=== PATIENT | female | born 1990 | race Asian ===

== ENCOUNTER → 2023-06-28 13:01 | Outpatient (CLI) | payer OTHER, SELFPAY ==
[2023-06-28 14:07] LABS: Appearance Urine UA CLEAR; Bilirubin Urine UA NEGATIVE (NEGATIVE); Color Urine UA YELLOW; Glucose Urine UA NEGATIVE (Negative); Ketones Urine UA NEGATIVE (NEGATIVE); Leukocyte Esterase Urine UA TRACE (NEGATIVE); Nitrite Urine UA NEGATIVE (Negative); Occult Blood Urine UA NEGATIVE (Negative); Protein Urine UA NEGATIVE (Negative); Urine Volume 10mL (spun); Urobilinogen Urine UA 0.2 E.U./dL (0.2); pH Urine UA 5.5 (4.5-8.0)
[2023-06-28 14:11] LABS: Bacteria Urine None Seen; RBC Urine None Seen (0-5/HPF); Squamous Epithelial Cell Urine 0-1 /HPF (0-5/HPF); WBC Urine 1-5/HPF (0-5/HPF)
[2023-06-28 14:12] LABS: Add Manual Diff / Slide Review NO; Basophils Absolute Auto 100 /uL (0-100); Basophils Percent Auto 0.6 % (0-2); Eosinophils Absolute Auto 100 /uL (0-450); Eosinophils Percent Auto 1.3 % (2-4); Hematocrit 40.4 % (36-46); Lymphocytes Absolute Auto 1400 /uL (1100-4500); Lymphocytes Percent Auto 14.5 % (25-40); Mean Corpuscular HGB Conc 34.5 % (30-36); Mean Corpuscular Hemoglobin 31.3 PG (26-34); Mean Corpuscular Volume 90.5 fL (80-100); Monocytes Absolute Auto 600 /uL (0-900); Monocytes Percent Auto 6.1 % (3-14); Neutrophils Absolute Auto 7300 /uL (1500-7000); Neutrophils Percent Auto 77.5 % (50-75); Platelet Count 254 X10^3/uL (150-400); Red Blood Cell Count 4.47 X10^6/uL (4.0-5.2); Red Cell Distribution Width 12.4 % (11.6-14.8); White Blood Cell Count 9.4 X10^3/uL (4.5-11.0)
[2023-06-28 14:16] LABS: Hemoglobin A1C% w Est Avg Glu 4.9 % (4.0-6.0)
[2023-06-28 15:34] LABS: Urine N gonorrhoeae NOT DETECTED
[2023-06-28 15:40] LABS: Urine Chlamydia NOT DETECTED
[2023-06-29 08:26] LABS: Varicella IgG Antibody 1131 index (Immune >165)
[2023-06-29 16:14] LABS: HIV 1 & 2 Ab/Ag 4th Gen Combo NEGATIVE (NEGATIVE); Hep C Virus Ab w/Reflex Quant NEGATIVE s/c (NEGATIVE); Hepatitis B Surface Antigen NEGATIVE s/c (NEGATIVE); Rubella Antibody IgG > 350.0 IU/mL (>15)
[2023-06-30 03:30] LABS: RPR Screen Non Reactive (Non Reactive)
== END ==
PROVIDERS: PCP Nurse Practitioner Family; Referring Provider Family Medicine; Visit Provider Family Medicine
DX: O09.299 Supervision of pregnancy with other poor reproductive or obstetric history, unspecified trimester (principal); Z86.32 Personal history of gestational diabetes
CPT/HCPCS: 36415; 80055; 81003; 81015; 83036; 86787; 86803; 86850; 86900; 86901; 87086; 87389; 87491; 87591

== ENCOUNTER → 2023-08-28 15:10 | Outpatient (CLI) | payer OTHER, SELFPAY ==
[2023-08-31 21:07] LABS: AFP, Serum 66.4 ng/mL (.); Calc Gestational Age EDD (.); Inhibin A, Dimeric 194.77 pg/mL (.); Inhibin A, MoM 1.07 (.); Maternal Ethnicity Other (.); Maternal Weight 116 lbs (.); Number of Fetuses No (.); OSBR Risk 1 IN 5096 (.); Results Report (.); Test Results *Screen Negative* (.); hCG, MoM 1.27 (.); hCG, Serum 45743 mIU/mL (.)
== END ==
LOC: LAB 15:12
PROVIDERS: PCP Nurse Practitioner Family; Referring Provider Family Medicine; Visit Provider Family Medicine
DX: Z34.80 Encounter for supervision of other normal pregnancy, unspecified trimester (principal)
CPT/HCPCS: 82105; 82677; 84702; 86336

== ENCOUNTER 2023-09-21 08:11 | Emergency (ER) | payer OTHER, SELFPAY ==
[2023-09-21 08:46] VITALS: BP 120/62; PULSE 112; RESP 20; TEMP 37; O2SAT 100; BMI 20.7
--- NOTE | 2023-09-21 09:17 | ED_ITS ---
HPI - General Chief complaint: Urogenital-Female Stated complaint: fever, low back pain Time Seen by Provider: 09/21/23 08:56 Source: patient and family Mode of arrival: Ambulatory Limitations: language barrier History of Present Illness HPI Narrative: This is a 33-year-old female history of gestational diabetes patient who presents with right flank pain for the last 2 days. Patient noted she would some fevers and chills the night before. She states pain is mostly in the flank occasionally comes around to the front but is currently just in the back. She denies any vomiting she has occasionally had some nausea. States no dysuria, urgency or frequency. No issues such as diarrhea or constipation. She has not had any vaginal fluid leakage or bleeding. She states she does feel baby move and has not had any changes. Patient notes she does have some pain down between her thighs but that has been going on for about 2 months worse at nighttime when she is sleeping she does not think it is related to this. Patient only current medication is her vitamins. She did take some Tylenol last night which was somewhat helpful she has not had anything today for pain. She denies prior surgeries. No known drug allergies. No tobacco, no regular alcohol, no recreational drugs. She is accompanied by her . Her provider is Dr. Monreal. Related Data Previous Rx's Medication Instructions Recorded vits no.126-ferrous fum 1 tab PO DAILY #90 tabs 08/28/23 28 mg iron-folic acid 800 mcg tablet (Classic ) cephalexin 500 mg capsule 500 mg PO BID 14 days #28 caps 09/21/23 ondansetron 4 mg disintegrating 4 mg PO Q6H PRN nausea and 09/21/23 tablet vomiting #7 tabs Allergies Allergy/AdvReac Type Severity Reaction Status Date / Time No Known Drug Allergies Allergy Unverified 08/28/23 14:50 Review of Systems Review of Systems ROS Unobtainable: All systems reviewed & are unremarkable except as noted in HPI and below Exam Narrative Exam Narrative: GENERAL: Alert and oriented x three, mild patient is more uncomfortable with movement. HEENT: Head normocephalic, atraumatic, EOMI, pupils reactive, face symmetric, moist mucous membranes NECK: Supple, full range of motion CARDIOVASCULAR: Regular rate and rhythm without murmurs, rubs or gallops. RESPIRATORY: Breath sounds equal bilaterally, no wheezes rales or rhonchi. ABDOMEN: Soft, nontender. Gravid, size appropriate for dates. Nontender. Normoactive bowel sounds all 4 quadrants. No guarding or rebound, rigidity, no mass : Right CVA tenderness, no left CVA tenderness. EXTREMITIES: Normal range of motion, no clubbing or edema. Neurovascularly intact NEUROLOGICAL: Cranial nerves II through XII grossly intact. Moving all extremities SKIN: Warm, dry, no petechiae, no rashes or lesions. Initial Vital Signs Initial Vital Signs: Vital Signs Temperature 98.6 F 09/21/23 08:46 Pulse Rate 112 H 09/21/23 08:46 Respiratory Rate 20 09/21/23 08:46 Blood Pressure 120/62 09/21/23 08:46 Pulse Oximetry 100 09/21/23 08:46 Oxygen Delivery Method Room Air 09/21/23 08:46 Course Orders Ordered: ED Orders 09/21/23 08:58 UA Complete [Urinalysis and Microscopic] Stat 09/21/23 09:17 US OB limited Stat US renal complete Stat 09/21/23 09:23 CBC Auto Diff [Complete Blood Count AUTO DIFF] Stat CMP [Comprehensive Metabolic Panel] Stat Lipase Stat 09/21/23 09:54 Urine Culture Stat Discontinued Medications Acetaminophen (Acetaminophen 325 Mg Tablet) 975 mg PO NOW ONE Stop: 09/21/23 09:18 Last Admin: 09/21/23 10:09 Dose: 975 mg Documented By: TIERNEY Sodium Chloride (Normal Saline 0.9%) 1,000 mls @ 1,000 mls/hr IV BOLUS ONE Stop: 09/21/23 09:57 Last Infusion: 09/21/23 10:58 Dose: Infused Documented By: Admin: 09/21/23 10:08 Dose: 1,000 mls/hr Documented By: TIERNEY Ceftriaxone Sodium 1,000 mg/ (Sodium Chloride) 100 mls @ 200 mls/hr IV NOW ONE Stop: 09/21/23 10:34 Last Infusion: 09/21/23 11:39 Dose: Infused Documented By: Admin: 09/21/23 10:58 Dose: 200 mls/hr Documented By: RB Vital Signs Vital signs: Vital Signs - 8 hr 09/21/23 08:46 09/21/23 12:49 Temperature 98.6 F Pulse Rate 112 H 89 Respiratory Rate 20 18 Blood Pressure 120/62 99/64 Pulse Oximetry 100 99 Oxygen Delivery Method Room Air Room Air MDM - OB/Uterine Contractions Lab Data 09/21/23 09:23 09/21/23 09:23 Labs: Lab Results 09/21/23 09/21/23 Range/Units 09:23 09:54 WBC 13.1 H (4.5-11.0) X10^3/uL RBC 3.72 L (4.0-5.2) X10^6/uL Hgb 11.7 L (12.0-16.0) g/dL Hct 34.3 L (36-46) % MCV 92.2 (80-100) fL MCH 31.5 (26-34) PG MCHC 34.2 (30-36) % RDW 13.3 (11.6-14.8) % Plt Count 223 (150-400) X10^3/uL Neut % (Auto) 84.9 H (50-75) % Lymph % (Auto) 5.2 L (25-40) % Kaufman % (Auto) 9.4 (3-14) % Eos % (Auto) 0.2 L (2-4) % Baso % (Auto) 0.3 (0-2) % Neut # (Auto) 43070 H (5236-8969) /uL Lymph # (Auto) 700 L (6327-3733) /uL [place]man # (Auto) 1200 H (0-900) /uL Eos # (Auto) 0 (0-450) /uL Baso # (Auto) 0 (0-100) /uL Sodium 134 L (137-145) mmol/L Potassium 4.4 (3.4-5.1) mmol/L Chloride 102 (98-107) mmol/L Carbon Dioxide 27 (22-32) mmol/L BUN 6 L (7-17) mg/dL Creatinine 0.46 L (0.52-1.04) mg/dL Estimated GFR > 60 (>60) mL/min BUN/Creatinine Ratio 13.0 (6-22) Glucose 118 H (70-100) mg/dL Calcium 8.9 (8.4-10.2) mg/dL Total Bilirubin 0.4 (0.2-1.3) mg/dL AST 24 (14-36) IU/L ALT 16 (<35) IU/L Alkaline Phosphatase 61 (38-126) U/L Total Protein 6.9 (6.3-8.2) g/dL Albumin 3.9 (3.5-5.0) g/dL Globulin 3.0 (1.7-4.1) g/dL Albumin/Globulin Ratio 1.3 (1.0-2.8) Lipase 24 (23-300) U/L Urine Color Yellow Urine Appearance Clear Urine pH 7.0 (4.5-8.0) Ur Specific Walden 1.015 (1.000-1.035) Urine Protein Trace H (Negative) Urine Glucose (UA) Trace H (Negative) g/dL Urine Ketones Negative (NEGATIVE) Urine Occult Blood Trace-intact (Negative) Urine Nitrate Positive H (Negative) Urine Bilirubin Negative (NEGATIVE) Urine Urobilinogen 0.2 (0.2) E.U./dL Ur Leukocyte Esterase 3+ H (NEGATIVE) Urine RBC 10-30/hpf H (0-5/HPF) Urine WBC 30-100/hpf H (0-5/HPF) Ur Squamous Epith Cells 1-5 /hpf (0-5/HPF) Urine Bacteria Moderate (10-30) H (None) Ur Culture Indicated? Specimen cultured Vol Urine Centrifuged 10ml (spun) Imaging Data US - OB: Radiologist's Impression: [place] [address] Ultrasound Report Signed Patient: Reema Hancock MR#: [id number] : 1990 Acct:[id number] Age/Sex: 33 / F Date of Service: 09/21/23 Loc: ED Accession Number: [id number] Procedure: US OB limited Ordering Provider: Nighat Cook D.O. PROCEDURE: US OB LIMITED INDICATIONS: Right flank pain, occs anterior, 21 weeks OUTSIDE/PRIOR DATING DATA: Last menstrual period (LMP): Not available. LMP-based estimated date of delivery (JOSE): Not available. First dating scan (date and location): Not available at doctor's office. Estimated date of delivery (JOSE) from first dating scan: 01/30/2024. TECHNIQUE: Real-time scanning was performed of the fetus, with image documentation and biometric measurements. Biophysical profile was also obtained. Endovaginal scanning: Not performed COMPARISON: None. FINDINGS: General: A single living intrauterine gestation is present. Presentation: Breech. Placenta: Placental position is anterior , without previa. Note is made of a placental Duncan near the inferior placenta measuring 3.8 x 1.9 x 1.2 cm. Amniotic fluid index: 14 cm, normal range is 5-24 cm. Single deepest vertical pocket is 5.2 cm. heart rate: 155 beats per minute. Maternal cervical canal: Closed measuring 3.5 cm long. Normal lower limit is 2.5 cm. biometrics: Biparietal diameter: 21 weeks 0 days Head circumference: 21 weeks 1 day Abdominal circumference: 21 weeks 4 days Femur length: 21 weeks 4 days Clinically estimated gestational age: 21 weeks 2 days Composite gestational age from present scan: 21 weeks 2 days Estimated weight and percentile: 428 g; 56% for gestational age. Other: Prominent placental Duncan in the inferior tip of the placenta. There is a four-chamber heart with normal ventricular outflow tracts. anatomic survey not performed. The patient has a schedule for anatomic survey later this week. IMPRESSION: 1. A single living intrauterine gestation with positive heart tone. Interval growth is concordant with provided dating inflammation. 2. A placental Dnucan near the inferior tip of the placenta. Recommend attention on follow-up imaging. We strive to produce accurate, complete, and clear reports of imaging services. To assist us in improving patient care, this report was composed using standard report templates and voice recognition software. Therefore, it may contain abnormal punctuation, insertions and/or omissions. Occasional wrong-word or sound-alike substitutions may occur. Though we review the report and make efforts to correct it, we do recommend that the report be read carefully in proper context to recognize any text inaccuracies. Measurement variability for biometric dating: +/- 7 days from 14 weeks to 15 weeks 6 days gestation, +/- 10 days from 16 weeks to 21 weeks 6 days gestation, +/- 2 weeks from 22 weeks to 27 weeks 6 days gestation, +/- 3 weeks for 28 weeks gestation or later. weight reference: 4500 g or EFW >90/95% is considered macrosomia or large for gestational age. EFW <10% is small for gestational age. EFW 5% or less is considered intra-uterine growth restriction.>> Dictated by: Mohan Mann M.D. on 09/21/2023 at 11:58 Approved by: Mohan Mann M.D. on 09/21/2023 at 12:11 renal US: Radiologist's Impression: Reema Hancock??33??F??1990 ? Allergy/Adv: No Known Drug Allergies Close Renal Ultrasound (Signed) Mohan Mann - 09/21/23 Obstetrics Ultrasound (Signed) Mohan Mann - 09/21/23 [place] [address] Ultrasound Report Signed Patient: Reema Hancock MR#: [id number] : 1990 Acct:[id number] Age/Sex: 33 / F Date of Service: 09/21/23 Loc: ED Accession Number: [id number] Procedure: US renal complete Ordering Provider: Nighat Cook D.O. PROCEDURE: US RENAL COMPLETE INDICATIONS: Right flank pain, occs anterior, 21 weeks TECHNIQUE: Real-time scanning was performed of the kidneys and bladder, with image documentation. COMPARISON: None. FINDINGS: Kidneys: Kidneys are normal in size. Right kidney measures 10.8 cm long; left kidney measures 10.9 cm long. Right renal cortical thickness is 1.1 cm; left renal cortical thickness is 1.3 cm. Renal cortical echotexture is normal. Mild right renal pelviectasis. No nephrolithiasis. No suspicious solid mass lesions. Bladder: Pre-void bladder volume is 122 mL. Post-void bladder is empty. Pre- void images demonstrate no intraluminal masses or stones. On pre-void images, both ureteral jets are noted with color Doppler interrogation. (Of note, ureteral jets may not be detectable in up to 25% of cases due to insufficient differences in specific gravity between ureteral and bladder urine). Miscellaneous: No free pelvic fluid. There is a fetus with heart rate 155 BPM. Please see separate Ob ultrasound report. IMPRESSION: 1. Mild right renal pelviectasis, presumably related to . Recommend attention on follow-up imaging. 2. No renal stones. Dictated by: Mohan Mann M.D. on 09/21/2023 at 12:11 Approved by: Mohan Mann M.D. on 09/21/2023 at 12:14 [facility] Narrative Medical decision making narrative: 33-year-old female with right flank pain with reported fever last night. Patient does not have any urinary symptoms no vaginal fluid leakage. She is nontender anteriorly. Patient is slightly tachycardic upon arrival, afebrile otherwise appropriate vitals with a blood pressure 120/62. Plan for labs, renal and OB ultrasound and urinalysis. Labs patient has a white count of 13 hemoglobin of 11 platelets of 223. Sodium is 134 BUN 6 with otherwise normal electrolytes glucose of 118 LFTs are negative UA shows nitrate positive urine 3+ leuks 10-30 RBCs 3200 WBCs moderate bacteria. OB ultrasound shows intrauterine gestation age appropriate for dates does have placental leg near inferior tip placenta patient should follow up with , renal ultrasound does show some mild right pelviectasis Early secondary to no renal stones, ureteral jets are noted with color Doppler bilaterally. Patient received fluids and tylenol, patient given dose of Rocephin in the department. Spoke with Dr. Moon, asked for patient's note to be CC to Dr. Monreal. Continue with Keflex. Patient is to return if any worsening symptoms difficulty with vomiting or any issues. This was expressed to the patient as well. Discussed with patient and family they understand they feel comfortable returning home she feels somewhat improved after Tylenol. She did not receive a dose of Rocephin. They have an appointment tomorrow with Dr. Desir. Discussed return precautions and low threshold to return if any worsening symptoms. Reviewed all if patient's labs ultrasound findings and urine findings today. Discharge Plan Departure Patient Disposition: Home Clinical Impression: Pyelonephritis affecting Instructions: DI for Kidney Infection Activity Restrictions/Additional Instructions: Follow up with Dr. Monreal at your appointment tomorrow. You appear to have an infection in your kidney or pyelonephritis. Take antibiotics until completed. You can take Zofran 1 tablet every 6 hours as needed for nausea. You can take Tylenol up to a 1000 mg every 6 hours as needed for pain. Prescription sent to [facility]. Please return for any fevers, new or worsening abdominal back or flank pain, any vomiting, lightheadedness or passing out, new vaginal bleeding or fluid leakage, decreased movement of baby or other new or concerning changes. Prescriptions: New cephalexin 500 mg capsule 500 mg PO BID 14 Days Qty: 28 0RF ondansetron 4 mg tablet,disintegrating 4 mg PO Q6H PRN (Reason: nausea and vomiting) Qty: 7 0RF No Action Classic 28 mg iron- 800 mcg tablet 1 tab PO DAILY Qty: 90 3RF Referrals: Anel Clayton FNP-C [Primary Care Provider] - Stand Alone Forms: Patient Portal/API
[2023-09-21 09:31] LABS: Add Manual Diff / Slide Review NO; Basophils Absolute Auto 0 /uL (0-100); Basophils Percent Auto 0.3 % (0-2); Eosinophils Absolute Auto 0 /uL (0-450); Eosinophils Percent Auto 0.2 % (2-4); Hematocrit 34.3 % (36-46); Hemoglobin 11.7 g/dL (12.0-16.0); Lymphocytes Absolute Auto 700 /uL (1100-4500); Lymphocytes Percent Auto 5.2 % (25-40); Mean Corpuscular HGB Conc 34.2 % (30-36); Mean Corpuscular Hemoglobin 31.5 PG (26-34); Mean Corpuscular Volume 92.2 fL (80-100); Monocytes Absolute Auto 1200 /uL (0-900); Monocytes Percent Auto 9.4 % (3-14); Neutrophils Absolute Auto 11200 /uL (1500-7000); Neutrophils Percent Auto 84.9 % (50-75); Platelet Count 223 X10^3/uL (150-400); Red Blood Cell Count 3.72 X10^6/uL (4.0-5.2); Red Cell Distribution Width 13.3 % (11.6-14.8); White Blood Cell Count 13.1 X10^3/uL (4.5-11.0)
[2023-09-21 09:52] LABS: Alanine Aminotransferase 16 IU/L (<35); Albumin 3.9 g/dL (3.5-5.0); Albumin Globulin Ratio 1.3 (1.0-2.8); Alkaline Phosphatase 61 U/L (38-126); Aspartate Aminotransferase 24 IU/L (14-36); Bilirubin Total 0.4 mg/dL (0.2-1.3); Blood Urea Nitrogen 6 mg/dL (7-17); Calcium 8.9 mg/dL (8.4-10.2); Carbon Dioxide 27 mmol/L (22-32); Chloride 102 mmol/L (98-107); Estimated Glomerular Filt Rate > 60 mL/min (>60); Glucose 118 mg/dL (70-100); HEMOLYSIS < 15 (0-50); Lipase 24 U/L (23-300); Potassium 4.4 mmol/L (3.4-5.1); Sodium 134 mmol/L (137-145); Total Protein 6.9 g/dL (6.3-8.2)
[2023-09-21] MEDS: SODIUM CHLORIDE 0.9% 1,000 ML 1000 ML IV (10:08)
[2023-09-21] MEDS: ACETAMINOPHEN 325 MG TABLET 975 MG PO (10:09)
[2023-09-21 10:14] LABS: Appearance Urine UA CLEAR; Bilirubin Urine UA NEGATIVE (NEGATIVE); Color Urine UA YELLOW; Glucose Urine UA TRACE g/dL (Negative); Ketones Urine UA NEGATIVE (NEGATIVE); Leukocyte Esterase Urine UA 3+ (NEGATIVE); Nitrite Urine UA POSITIVE (Negative); Occult Blood Urine UA TRACE-INTACT (Negative); Protein Urine UA TRACE (Negative); Specific Gravity Urine UA 1.015 (1.000-1.035); Urobilinogen Urine UA 0.2 E.U./dL (0.2)
[2023-09-21 10:35] LABS: Bacteria Urine Moderate (10-30); Culture Indicated Urine Specimen Cultured; RBC Urine 10-30/HPF (0-5/HPF); Squamous Epithelial Cell Urine 1-5 /HPF (0-5/HPF); Urine Volume 10mL (spun); WBC Urine 30-100/HPF (0-5/HPF)
[2023-09-21] MEDS: cefTRIAXone 1,000 MG in SODIUM CHLORIDE 0.9% 100 ML 200 MG IV (10:58)
[2023-09-21 12:49] VITALS: BP 99/64; PULSE 89; RESP 18; O2SAT 99
== END 2023-09-21 12:49 | disposition home or self-care (01) ==
PROVIDERS: Emergency Provider Emergency Medicine; PCP Nurse Practitioner Family
DX: O23.00 Infections of kidney in pregnancy, unspecified trimester (principal); Z3A.21 21 weeks gestation of pregnancy
CPT/HCPCS: 36415; 76770; 76815; 80053; 81001; 83690; 85025; 87077; 87086; 87186; 96361; 96365; 99284; J0696

== ENCOUNTER → 2023-09-22 14:16 | Outpatient (CLI) | payer OTHER, SELFPAY ==
--- NOTE | 2023-09-22 14:17 | DI.US.S_ITS ---
PROCEDURE: US OB LIMITED INDICATIONS: anatomy OUTSIDE/PRIOR DATING DATA: Last menstrual period (LMP): Unknown. LMP-based estimated date of delivery (JOSE): Unknown. First dating scan (date and location): Not applicable. Estimated date of delivery (JOSE) from first dating scan: Not applicable. The calculations are made using the working JOSE of 01/30/2024. TECHNIQUE: Real-time scanning was performed of the fetus, with image documentation. Endovaginal scanning: No COMPARISON: [facility], OB LIMITED, 09/21/2023, 9:29. FINDINGS: A single living intrauterine gestation is present. Presentation: Vertex. Placenta: Placental position is anterior/left, without previa. Amniotic fluid index: 13.5 cm, normal range is 5-24 cm. Single deepest vertical pocket is 3.9 cm. heart rate: 162 beats per minute. Maternal cervical canal: 3.5 cm long. Normal lower limit is 2.5 cm. Clinically estimated gestational age: 21 week 3 day Estimated gestational age from initial scan: Not applicable. IMPRESSION: Single live intrauterine consistent with 21 week 3 day gestation. Normal anatomic survey Approved by: Victorino Milton M.D. on 09/22/2023 at 18:48
== END ==
LOC: US 14:17
PROVIDERS: PCP Nurse Practitioner Family; Referring Provider Family Medicine; Visit Provider Family Medicine
DX: Z34.80 Encounter for supervision of other normal pregnancy, unspecified trimester (principal); Z3A.21 21 weeks gestation of pregnancy
CPT/HCPCS: 76815

== ENCOUNTER → 2023-10-23 14:53 | Outpatient (CLI) | payer OTHER, SELFPAY | PROVIDERS: PCP Nurse Practitioner Family; Visit Provider Family Medicine | DX: Z34.80 Encounter for supervision of other normal pregnancy, unspecified trimester (principal) | CPT/HCPCS: 87086 ==

== ENCOUNTER → 2023-11-02 06:38 | Outpatient (CLI) | payer OTHER, SELFPAY ==
--- NOTE | 2023-11-02 06:39 | DI.US.S_ITS ---
PROCEDURE: US OB LIMITED INDICATIONS: RLQ mass seen on u/s at [facility], help clarify location OUTSIDE/PRIOR DATING DATA: Last menstrual period (LMP): Unknown. LMP-based estimated date of delivery (JOSE): Not applicable. Estimated date of delivery (JOSE) from first dating scan: January 30, 2024. TECHNIQUE: Real-time scanning was performed of the fetus, with image documentation. Endovaginal scanning: Not performed COMPARISON: [facility], , OB LIMITED, 09/22/2023, 14:30. FINDINGS: A single living intrauterine gestation is present. Presentation: Vertex. Placenta: Placental position is anterior, without previa. Amniotic fluid index: 16.3 cm, normal range is 5-24 cm. Single deepest vertical pocket is 5.5 cm. heart rate: 145 beats per minute. Maternal cervical canal: 3.8 cm long. Normal lower limit is 2.5 cm. Estimated gestational age from initial scan: 27 weeks and 2 days Maternal organs: Normal sonographic appearance of the right ovary/adnexa. Left ovary not seen secondary to overlying bowel gas. Right anterior intramural uterine fibroid measuring 3.0 x 2.7 x 2.1 cm. This fibroid is noted lateral the placenta on the right side of the uterus.. IMPRESSION: Single living intrauterine gestation with estimated gestational age of approximately 27 weeks and 2 days. There is a 3.0 cm intramural uterine fibroid noted adjacent to the right lateral aspect of the placenta. Recommend continued clinical surveillance with follow-up imaging as needed. Dictated by: Lui De Leon M.D. on 11/02/2023 at 18:54 Approved by: Lui De Leon M.D. on 11/02/2023 at 19:00
[2023-11-02 09:54] LABS: Add Manual Diff / Slide Review NO; Basophils Absolute Auto 0 /uL (0-100); Basophils Percent Auto 0.3 % (0-2); Eosinophils Absolute Auto 100 /uL (0-450); Eosinophils Percent Auto 1.2 % (2-4); Hematocrit 36.4 % (36-46); Hemoglobin 12.4 g/dL (12.0-16.0); Lymphocytes Absolute Auto 1300 /uL (1100-4500); Lymphocytes Percent Auto 13.9 % (25-40); Mean Corpuscular Hemoglobin 32.1 PG (26-34); Mean Corpuscular Volume 94.4 fL (80-100); Monocytes Absolute Auto 600 /uL (0-900); Monocytes Percent Auto 6.7 % (3-14); Neutrophils Absolute Auto 7100 /uL (1500-7000); Neutrophils Percent Auto 77.9 % (50-75); Platelet Count 246 X10^3/uL (150-400); Red Blood Cell Count 3.86 X10^6/uL (4.0-5.2); Red Cell Distribution Width 13.2 % (11.6-14.8); White Blood Cell Count 9.1 X10^3/uL (4.5-11.0)
[2023-11-02 10:40] LABS: GTT (PREG) 1 Hour PP 50gm Dose 148 mg/dL (76-139)
== END ==
PROVIDERS: PCP Nurse Practitioner Family; Referring Provider Family Medicine; Visit Provider Family Medicine
DX: O34.12 Maternal care for benign tumor of corpus uteri, second trimester (principal); Z3A.27 27 weeks gestation of pregnancy
CPT/HCPCS: 76815; 76856; 82950; 85025; 86850

== ENCOUNTER → 2023-11-29 09:50 | Outpatient (CLI) | payer OTHER, SELFPAY ==
[2023-11-29 11:05] LABS: Glucose Fasting Gestational 82 mg/dL (76-95)
[2023-11-29 11:40] LABS: Glucose 1 Hour Gest 178 mg/dL (76-180)
[2023-11-29 12:51] LABS: Glucose 2 Hour Gest 178 mg/dL (76-155)
[2023-11-29 13:05] LABS: Glucose Tol Interp,Gestational INTERPRETATION
[2023-11-29 13:43] LABS: Glucose 3 Hour Gest 142 mg/dL (76-140)
== END ==
PROVIDERS: PCP Nurse Practitioner Family; Referring Provider Family Medicine; Visit Provider Family Medicine
DX: O99.810 Abnormal glucose complicating pregnancy (principal)
CPT/HCPCS: 36415; 82951; 82952

== ENCOUNTER → 2024-01-02 10:13 | Outpatient (CLI) | payer OTHER, SELFPAY ==
[2024-01-03 11:56] LABS: Strep Grp B PCR NEG for Grp B Strep
== END ==
PROVIDERS: PCP Nurse Practitioner Family; Visit Provider Family Medicine
DX: Z34.80 Encounter for supervision of other normal pregnancy, unspecified trimester (principal)
CPT/HCPCS: 87653

== ENCOUNTER 2024-01-21 06:40 | Inpatient (IN) | payer OTHER, SELFPAY ==
[2024-01-21 08:20] VITALS: BP 109/66
[2024-01-21 08:38] LABS: Add Manual Diff / Slide Review NO; Basophils Absolute Auto 0 /uL (0-100); Basophils Percent Auto 0.4 % (0-2); Eosinophils Absolute Auto 100 /uL (0-450); Eosinophils Percent Auto 0.7 % (2-4); Hematocrit 38.6 % (36-46); Hemoglobin 13.2 g/dL (12.0-16.0); Lymphocytes Absolute Auto 1200 /uL (1100-4500); Lymphocytes Percent Auto 10.9 % (25-40); Mean Corpuscular HGB Conc 34.3 % (30-36); Mean Corpuscular Hemoglobin 31.8 PG (26-34); Mean Corpuscular Volume 92.5 fL (80-100); Monocytes Absolute Auto 900 /uL (0-900); Monocytes Percent Auto 8.1 % (3-14); Neutrophils Absolute Auto 8600 /uL (1500-7000); Neutrophils Percent Auto 79.9 % (50-75); Platelet Count 216 X10^3/uL (150-400); Red Blood Cell Count 4.17 X10^6/uL (4.0-5.2); Red Cell Distribution Width 13.7 % (11.6-14.8); White Blood Cell Count 10.7 X10^3/uL (4.5-11.0)
[2024-01-21] MEDS: LACTATED RINGERS 1,000 ML 100 ML IV (10:30)
--- NOTE | 2024-01-21 13:59 | P.HPOB_ITS ---
OB HPI Date/Time Date of admission: 01/21/24 Date Patient Seen: 01/21/24 History of Present Condition Chief complaint: labor JOSE Calculator 2 Estimated Delivery Date Method Current WG Current Estimate 01/30/24 Manual 38w 5d Final JOSE - SYMONE Other Estimates 01/23/24 LMP (Uncertain) 39w 5d 01/30/24 Ultrasound #1 38w 5d Estimated Gestational Age (weeks): 38w5d : 2 Para: 1 Narrative: 33yo at 38w5d here with regular contractions. Pt reports contractions started around 3:30pm, increasing in intensity and frequency since then. No LOF, minimal bloody show. She is feeling her baby move regularly. complicated by GDMA1 with excellent dietary control. care: good care, initiated at week # (9) and pounds weight gain (29) Dating criteria OB: based on 1st trimester US only Ultrasounds: normal 1st trimester US and normal mid trimester US Obstetrical complications: gestational diabetes (A1) Medical complications OB: none Preadmission Labs Last OB Lab Results: 2 Blood Type A Positive 01/21/24 08:00 Antibody Screen Negative 01/21/24 08:00 Hct 38.6 % (36-46) 01/21/24 08:00 Hgb 13.2 g/dL (12.0-16.0) 01/21/24 08:00 Hep Bs Antigen Negative s/c (NEGATIVE) 06/28/23 13:08 Hepatitis C Antibody Negative s/c (NEGATIVE) 06/28/23 13:08 Rubella Antibody > 350.0 IU/mL (>15) 06/28/23 13:08 VZV IgG Antibody 1131 index (Immune >165) 06/28/23 13:08 Glucose 1 Hr 50 gm 148 mg/dL (76-139) H 11/02/23 09:03 Hemoglobin A1c 4.9 % (4.0-6.0) 06/28/23 13:08 Group B Strep (PCR) Neg for grp b strep 01/02/24 10:00 Glucose Tolerance Testing: Fasting (82), 1 hr (178), 2 hr (178) and 3 hr (142) Genetic Screens: Quad screen: Normal Prior (ies) Past Pregnancies Del. Date GA/Weeks Labor Lgth Wt Sex Route Outcome Anesthesia Place Delv Breastfeed Preg Comp Name 11/23/19 38 22 6 lb 4 oz Male vaginal live - full ter m epidural [facility] pumped and bottle fed for 6 mo gestational diabetes Leon Evaluation Evaluation Baseline heart rate: 145 Variability: Moderate (11-25) monitor accelerations: Present Monitor Decelerations: Absent Contraction Frequency (minutes): 3 Uterine Contraction Intensity: Moderate Status: Category l Dilation (cm): 5 Effacement (%): 80 station: -2 Position of cervix: mid Consistency: soft PFSH Medical History (Updated 01/19/24 @ 10:32 by Taylor Monreal MD) Gestational diabetes Surgical History (Updated 06/26/23 @ 08:11 by Yadira Vogt, RN) No pertinent past surgical history Family History (Updated 06/26/23 @ 08:13 by Yadira Vogt, SONAM) Mother Hypertension Grandfather Diabetes mellitus Hypertension Social History marital status: number of children: 1 household members: spouse, family (mother) and children lives independently: Yes caregiver/support person: Yes housing: house pets and animals: No education level: college (some college) occupational status: employed ([employer]) current occupational exposures/hazards: Yes (Pt agrees to wear N95 mask at work, also always wears gloves) cullen/jewish: Nondenominational special cullen needs: No travel history: recent (domestic only) seatbelt use: always water heater temp set < 120 deg: Yes working smoke detector in home: Yes fire extinguisher in home: Yes carbon monox detector in home: Yes firearms in home: No do you feel safe at home: Yes Smoking Status: Never smoker second hand exposure: No alcohol intake: never substance use type: does not use during the past year weight has: remained stable well-balanced diet: daily or most days daily servings fruits/ve or more times/day caffeine: No Type(s) of exercise: none Meds Home Medications and Allergies Home Medications Medication Instructions Recorded Confirmed Type ondansetron 4 mg disintegrating 4 mg PO Q6H PRN nausea and 09/21/23 01/21/24 Rx tablet vomiting #7 tabs Double Electric Breast Pump and #1 ea 11/29/23 01/21/24 Rx Supplies Glucose Meter #1 ea 11/29/23 01/21/24 Rx Glucose Test Strips #100 strips 11/29/23 01/21/24 Rx lancets 28 gauge (Acti-[place] #100 ea 11/29/23 01/21/24 Rx Lancets) vits no.126-ferrous fum 1 tab PO DAILY #90 tabs 11/29/23 01/21/24 Rx 28 mg iron-folic acid 800 mcg tablet (Classic ) Allergies Allergy/AdvReac Type Severity Reaction Status Date / Time No Known Drug Allergies Allergy Verified 01/19/24 10:26 OB Exam Resp Effort & Inspection: normal respiratory effort Auscultation: clear to auscultation bilaterally Cardio Rate: regular rate Rhythm: regular rhythm Heart Sounds: S1 normal, S2 normal and no murmurs GI Inspection: non-distended Palpation: Yes soft and No tender Presentation: vertex Objective Labs 01/21/24 08:00 Labs: Laboratory Results - last 24 hr 01/21/24 08:00 WBC 10.7 RBC 4.17 Hgb 13.2 Hct 38.6 MCV 92.5 MCH 31.8 MCHC 34.3 RDW 13.7 Plt Count 216 Neut % (Auto) 79.9 H Lymph % (Auto) 10.9 L [place] % (Auto) 8.1 Eos % (Auto) 0.7 L Baso % (Auto) 0.4 Neut # (Auto) 8600 H Lymph # (Auto) 1200 [place] # (Auto) 900 Eos # (Auto) 100 Baso # (Auto) 0 Blood Type A Positive Antibody Screen Negative Assessment and Plan Assessment and Plan Assessment and Plan narrative: 33yo at 38w5d here in active labor. GBS negative, Rh positive. GDMA1 with excellent dietary control. After informed consent, AROM performed with clear fluid present. - Expectant management, anticipate - FHT reassuring, intermittent monitoring okay - GBS negative, no prophylaxis needed - Epidural for pain control when desired Time-Based Coding :: [TOTAL MINUTES] spent with patient and on the chart (including review of chart, obtaining history, exam, reviewing outside data, placing orders, documenting exam and treatment plan, and counseling patient) on [DATE].
--- NOTE | 2024-01-21 17:42 | PM.AN.REGBLK ---
Regional Block Pre-procedure Procedure: Continuous Lumbar Epidural for L&D PMH/ROS narrative: active labor epidural requested GDM - diet controlled ASA Class: II Labs: Hct 38.6 % (36-46) 01/21/24 08:00 Plt Count 216 X10^3/uL (150-400) 01/21/24 08:00 Medications: Current Medications Generic Name Dose Route Start Last Admin Trade Name Freq PRN Reason Stop Dose Admin Carboprost Tromethamine 250 mcg 01/21/24 08:18 Carboprost 250 Mcg/Ml Ampul IM Q90M PRN Bleeding Lactated Ringer's 1,000 mls @ 100 mls/hr 01/21/24 08:30 01/21/24 10:30 Lactated Ringers IV 01/21/24 18:29 100 mls/hr CONT PAL Administration Oxytocin/Lactated Ringer's 30 unit in 500 mls @ 200 mls/hr 01/21/24 08:18 Oxytocin Premix IV CONT PRN Bleeding Protocol Tranexamic Acid 1,000 mg/ 100 mls @ 600 mls/hr 01/21/24 08:18 Sodium Chloride IV NOW PRN Bleeding Lidocaine HCl 20 ml 01/21/24 08:18 Lidocaine 1% 20 Ml INJ INTRA-OP PRN Post Delivery Methylergonovine Maleate 0.2 mg 01/21/24 08:18 Methylergonovine 0.2 Mg Tablet PO Q6HR PRN Heavy Bleeding Methylergonovine Maleate 0.2 mg 01/21/24 08:18 Methylergonovine 0.2 Mg/Ml Vial IM NOW PRN Bleeding Mineral Oil 30 ml 01/21/24 08:18 Mineral Oil 30 Ml Udc TOP PRN PRN Version Misoprostol 800 mcg 01/21/24 08:18 Misoprostol 200 Mcg Tablet TN NOW PRN Bleeding Misoprostol 400 mcg 01/21/24 08:18 Misoprostol 200 Mcg Tablet SL NOW PRN Bleeding Naloxone HCl 0.2 mg 01/21/24 08:18 Naloxone 0.4 Mg/Ml Vial IV Q2MIN PRN Opiate Reversal Oxytocin 10 unit 01/21/24 08:18 Oxytocin 10 Unit/Ml Vial IM NOW PRN Bleeding Allergies: Allergies Allergy/AdvReac Type Severity Reaction Status Date / Time No Known Drug Allergies Allergy Verified 01/19/24 10:26 Procedure Insertion date: 09/01/24 Insertion time: 17:30 Prep/Local: betadine x3 (chloraprep) Interspace: l3 l4 Patient position: sitting Needle: 18 gauge Hustead Loss of resistance with: saline DELFINA at (cm): 5 Catheter placed at SKIN (cm): 12 Initial Medications TEST DOSE time: 17:30 TEST DOSE: 1.5% lidocaine with epinephrine 1:200k (mL): 3 BOLUS DOSE time: 17:35 BOLUS DOSE (mL): 5 BOLUS DOSE med: 0.125% bupivacaine with fentanyl 10 mcg/mL Infusion INFUSION: 0.125% bupivacaine and with fentanyl 2 mcg/mL Initial rate (mL/hr): 8 Post-procedure Anesthesia date START: 01/21/24 Anesthesia time START: 17:20 Anesthesia date END: 01/21/24 Anesthesia time END: 19:19 Post-procedure Anesthesia Assessment: Yes CV function: HR/BP stable, Yes Resp function: RR/sat/airway adequate, Yes Post-op hydration adequate, Yes Pain control adequate, Yes Nausea & vomiting absent, Yes Temperature > 36 C and Yes Mental status appropriate
--- NOTE | 2024-01-21 19:19 | P.PCNOB_ITS ---
Labor & Delivery Delivery date: 01/21/24 Intrapartal Events: None Cervical ripening method: none Induction method: none Delivery augmentation: rupture of membranes Delivery monitor: external FHT and external uterine Route of delivery: Episiotomy description: None L&D Laceration Description: Perineal - 1st Degree Quantitative Blood Loss: 50 Anesthesia Type: Epidural Complications: None Narrative: PROCEDURE: at 38w5d presented in active labor and was admitted to Labor and Delivery. The patient progressed through the 1st stage over 15 hours. AROM occured at 14:08 with clear fluid. Pain was controlled with an epidural. The patient progressed through the 2nd stage over 46 minutes and delivered a viable male infant with APGARs 9/10 at 18:56 via without complications. Nuchal cord x1 was reduced at the perineum. The cord was cut and clamped after it stopped pulsating. The placenta delivered with gentle cord traction, and appeared complete. The perineum and vagina were inspected with 1st degree per ineal laceration repaired with 3-O Chromic due to bleeding. Needle and sponge counts were correct.? The vagina was inspected and no items were left in situ. Reema was doing well with Gelacio, her and her at bedside. PREPROCEDURE DIAGNOSIS: Intrauterine at 38w5d GBS negative RH positive GDMA1 POSTPROCEDURE DIAGNOSIS: Intrauterine at 38w5d, delivered Same as preprocedure [place] Baby 1: Infant gender: Male Presentation: vertex Position: Left Occiput Anterior Placenta delivery description: Spontaneous Cord Vessel Description: 3 Vessels and Nuchal Cord score (1 min): 9 score (5 min): 10 weight: 7 lb 11.353 oz Plan for aftercare: Routine care
[2024-01-22] MEDS: ACETAMINOPHEN 325 MG TABLET 650 MG PO ×2 (03:27→14:35)
[2024-01-22] MEDS: IBUPROFEN 600 MG TABLET PO ×2 (06:22→14:35)
--- NOTE | 2024-01-22 14:13 | PM.OBDS.1 ---
Discharge Providers Provider Date of admission: 01/21/24 06:40 Discharge Date: 01/22/24 Primary care physician: JUSTUS Faust Consults: 01/21/24 08:18 Consult to Anesthesiology Urgent Comment: Consulting Provider: Taylor Monreal Reason for consultation: Epidural 01/22/24 19:18 Consult to Manager Of Internal Audit Routine Comment: Discharge provider: Taylor Monreal MD Summary Hospital Course Date Patient Seen: 01/22/24 Time Patient Seen: 14:14 Diagnoses: Intrauterine at 38w5d GBS negative RH positive GDMA1 Hospital Course: The pt presented in active labor. AROM was performed with clear fluid present. She had an epidural for pain control. She progressed to complete and had an uncomplicated of a viable baby boy. A first degree perineal laceration was then repaired. , there were no complications. At the time of discharge she was voiding, ambulating, and passing flatus without difficulty. Her lochia was decreasing appropriately. Her pain was well controlled. She was with good latch. She will f/u in 6 weeks for check. Peripartum Data Delivery Method: Natural Vaginal Laceration Description: Perineal - 1st Degree Episiotomy description: None Procedures: Spontaneous vaginal delivery complications: none [place] 1: Gender: Male Disposition of : home Time Spent with Patient Time attestation: Total time spent providing and/or coordinating discharge services: Objective Labs 01/21/24 08:00 Exam Narrative Exam Narrative: Gen: NAD, sitting comfortably in bed, appears well CV: RRR, no murmurs Resp: clear to auscultation bilaterally Abd: soft, appropriately tender, fundus firm and below the umbilicus, nondistended Ext: no edema Discharge Plan Discharge Plan Patient Disposition: Home Discharge orders & Medications Prescriptions: Continued (DME) Double Electric Breast Pump and Supplies See Rx Instructions .ROUTE .MEDSUPPLY Qty: 1 0RF Rx Instructions: As directed Classic 28 mg iron- 800 mcg tablet 1 tab PO DAILY Qty: 90 3RF Discontinued (DME) Glucose Meter See Rx Instructions .ROUTE .MEDSUPPLY Qty: 1 0RF Rx Instructions: As directed (DME) Glucose Test Strips See Rx Instructions .ROUTE .MEDSUPPLY Qty: 100 3RF Rx Instructions: As directed to test glucose three times daily (DME) lancets [Acti-[place] Lancets] 28 gauge misc See Rx Instructions .Route Qty: 100 3RF Rx Instructions: As directed ondansetron 4 mg tablet,disintegrating 4 mg PO Q6H PRN (Reason: nausea and vomiting) Qty: 7 0RF Follow up/Referrals: Taylor Monreal MD [Physician] - 6 Weeks (Dr. Almonte office will call you on 01/22 to schedule a 6 week visit. The date should be around March 04, 2024. ) Diet/Activity/Treatments Diet: Diet as Tolerated and Regular Skin/Wound/Dressing Care Report to your healthcare provider any signs of infection, such as:: chills, fever, increased pain and unusual drainage Visit Report/Discharge Packet Instructions: DI for Labor and Delivery, Vaginal Stand Alone Forms: Discharge: Care, Patient Portal/API, Stroke Signs & Symptoms Discharge Data Primary Care Provider: Anel Clayton
[2024-01-22 14:16] VITALS: BP 103/67; PULSE 100; RESP 15; TEMP 36.8
[2024-01-22] MEDS: WITCH HAZEL/GLYCERIN PADS 1 EACH TOP (14:35)
[2024-01-22] MEDS: DERMOPLAST SPRAY 20% 60 ML 1 SPRAY TOP (14:36)
== END 2024-01-22 14:45 | disposition home or self-care (01) | DRG 807 ==
PROVIDERS: Family Medicine; Admitting Provider Family Medicine; PCP Nurse Practitioner Family; Referring Provider Family Medicine; Visit Provider Family Medicine
DX: O24.420 Gestational diabetes mellitus in childbirth, diet controlled (principal); Z37.0 Single live birth; O70.0 First degree perineal laceration during delivery; Z3A.38 38 weeks gestation of pregnancy; Z67.10 Type A blood, Rh positive
CPT/HCPCS: 36415; 59050; 59400; 85025; 86850; 86900; 86901; G0379

== ENCOUNTER → 2024-03-15 09:27 | Outpatient (CLI) | payer OTHER, SELFPAY ==
[2024-03-15 10:30] LABS: Glucose Fasting 91 mg/dL (70-100)
[2024-03-15 11:53] LABS: Glucose Tol Interpretation INTERPRETATION
[2024-03-15 12:12] LABS: Glucose 1 Hour 131 mg/dL (70-170)
[2024-03-15 14:20] LABS: Glucose 2 Hour 88 mg/dL (70-140)
== END ==
PROVIDERS: PCP Nurse Practitioner Family; Referring Provider Family Medicine; Visit Provider Family Medicine
DX: O24.410 Gestational diabetes mellitus in pregnancy, diet controlled (principal)
CPT/HCPCS: 36415; 82951; 82952